=== PATIENT | male | born 1950 | race African-American/Black ===

== ENCOUNTER 2017-09-20 17:37 | Inpatient (IN) | payer MEDICAID, OTHER ==
[~2017-09-20] VITALS: Ht 188 cm; Wt 78.5 kg
[2017-09-20] MEDS ORDERED: SODIUM CHLORIDE 0.9% 1,000 ML IV ONE (19:30)
[2017-09-20 20:02] LABS: Basophils # (auto) 0 uL; Basophils % (auto) 0.4 % (0.0-2.0); Eosinophils # (auto) 0 uL; Eosinophils % (auto) 0.1 % (0.0-7.0); Hematocrit 43.7 % (41.0-53.0); Hemoglobin 14.5 g/dL (13.5-17.5); Lymphocytes # (auto) 1.1 uL; Lymphocytes % (auto) 14.4 % (10.0-50.0); Mean Corpuscular Hemoglobin 32.2 pg (28.0-32.0); Mean Corpuscular Hgb Conc. 33.2 g/dL (32.0-36.0); Mean Corpuscular Volume 96.9 fL (80.0-100.0); Monocytes # (auto) 0.7 uL; Monocytes % (auto) 9.9 % (0.0-12.0); Neutrophils # (auto) 5.6 uL; Neutrophils % (auto) 75.2 % (37.0-80.0); Nucleated Red Blood Cells % 0.1 %; Platelet Count (auto) 150 10^3/uL (140-450); Red Blood Cells 4.51 10^6/uL (4.5-5.90); Red Cell Distribution Width 14.2 % (11.8-14.3); White Blood Cell 7.4 10^3/uL (4.4-10.8)
[2017-09-20 20:15] LABS: Alanine Aminotransferase 33 U/L (16-61); Albumin 3.7 g/dL (3.4-5.0); Alkaline Phosphatase 107 U/L (45-117); Anion Gap 9 (5-15); Aspartate Aminotransferase 31 U/L (15-37); BUN/Creatinine Ratio 10.2; Bilirubin, Total 0.5 mg/dL (0.2-1.0); Blood Alcohol < 3.0 mg/dL (0-5); Blood Urea Nitrogen 15 mg/dL (7-18); Carbon Dioxide 28 mmol/L (21-32); Chloride 103 mmol/L (98-107); GFR African American 61 mL/min; GFR Non-African American 51 mL/min; Glucose 98 mg/dL (74-106); Magnesium 2.1 mg/dL (1.6-2.6); Potassium 3.9 mmol/L (3.5-5.1); Sodium 140 mmol/L (136-145); Total Protein 7.7 g/dL (6.4-8.2)
[2017-09-20] MEDS ORDERED: ONDANSETRON HCL 4 MG/2 ML VIAL IV ONE (21:00)
[2017-09-20] MEDS ORDERED: MORPHINE SULF INJ 2 MG/ML SYRINGE 1ML IV ONE (21:00)
[2017-09-20] MEDS ORDERED: IPRATROPIUM BROM 0.5 MG/2.5ML INH SOL HHN ONE (21:00)
[2017-09-20] MEDS ORDERED: ALBUTEROL SULF 2.5 MG/0.5ML(0.5%) NEB SOLN HHN ONE (21:00)
[2017-09-20 23:11] LABS: Amylase 62 U/L (25-115); Lipase 143 U/L (73-393)
[2017-09-21] MEDS ORDERED: MORPHINE SULF INJ 2 MG/ML SYRINGE 1ML IV PRN (04:45)
[2017-09-21] MEDS ORDERED: NITROGLYCERIN 0.4 MG SL TAB SL PRN (04:45)
[2017-09-21 05:54] LABS: Basophils # (auto) 0.1 uL; Eosinophils # (auto) 0 uL; Hematocrit 42.2 % (41.0-53.0); Hemoglobin 14.1 g/dL (13.5-17.5); Lymphocytes # (auto) 1.5 uL; Lymphocytes % (auto) 16.8 % (10.0-50.0); Mean Corpuscular Hgb Conc. 33.4 g/dL (32.0-36.0); Mean Corpuscular Volume 95.8 fL (80.0-100.0); Monocytes # (auto) 0.8 uL; Neutrophils # (auto) 6.8 uL; Neutrophils % (auto) 73.2 % (37.0-80.0); Platelet Count (auto) 146 10^3/uL (140-450); Red Blood Cells 4.41 10^6/uL (4.5-5.90); White Blood Cell 9.2 10^3/uL (4.4-10.8)
[2017-09-21] MEDS ORDERED: HYDROcodone-ACET 5/325MG TAB PO PRN (06:00)
[2017-09-21] MEDS ORDERED: ACETAMINOPHEN 500 MG TAB PO PRN (06:00)
[2017-09-21] MEDS ORDERED: ONDANSETRON HCL 4 MG/2 ML VIAL IV PRN (06:00)
[2017-09-21 06:15] LABS: BUN/Creatinine Ratio 9.9; Potassium 4.1 mmol/L (3.5-5.1)
[2017-09-21] MEDS ORDERED: ACETAMINOPHEN 500 MG TAB PO ONE (06:15)
[2017-09-21 06:27] LABS: Urine Bacteria None Seen /hpf (None Seen); Urine WBC None Seen /hpf (0 - 3)
[2017-09-21 06:49] LABS: Urine Blood Normal /uL (Negative)
[2017-09-21] MEDS: GABAPENTIN 300 MG CAP PO SCH (10:51)
[2017-09-21] MEDS ORDERED: LORazepam 2MG/ML-1ML VIAL IV ONE (15:30)
[2017-09-21] MEDS: SODIUM CHLORIDE 0.9% 1,000 ML IV SCH (15:49)
[2017-09-21 16:45] LABS: Lactic Acid w/Reflex 2.1 mmol/L (0.4-2.0)
[2017-09-21] MEDS ORDERED: GABA100C9 PO (18:10)
[2017-09-21 21:57] VITALS: BP 111/57
[2017-09-22 05:04] VITALS: BP 123/62
[2017-09-22] MEDS: MORPHINE SULFATE 4 MG/ML SYR/VIAL ONE ×2 (06:23→06:28)
[2017-09-22 06:30] LABS: Basophils # (auto) 0.1 uL; Eosinophils # (auto) 0 uL; Eosinophils % (auto) 0.7 % (0.0-7.0); Hematocrit 39.6 % (41.0-53.0); Hemoglobin 13.4 g/dL (13.5-17.5); Lymphocytes # (auto) 1.2 uL; Lymphocytes % (auto) 20.1 % (10.0-50.0); Mean Corpuscular Hemoglobin 32.5 pg (28.0-32.0); Mean Corpuscular Hgb Conc. 33.8 g/dL (32.0-36.0); Mean Corpuscular Volume 96.3 fL (80.0-100.0); Monocytes # (auto) 0.6 uL; Monocytes % (auto) 10.1 % (0.0-12.0); Neutrophils # (auto) 4.1 uL; Neutrophils % (auto) 68.1 % (37.0-80.0); Platelet Count (auto) 138 10^3/uL (140-450); Red Blood Cells 4.12 10^6/uL (4.5-5.90)
[2017-09-22] MEDS ORDERED: MORPHINE SULF INJ 2 MG/ML SYRINGE 1ML IV ONE (06:30)
[2017-09-22 06:49] LABS: BUN/Creatinine Ratio 11.5; Calcium 8.2 mg/dL (8.5-10.1); Potassium 4.2 mmol/L (3.5-5.1)
[2017-09-22 08:49] VITALS: BP 130/64
[2017-09-22] MEDS ORDERED: LEVOFLOXACIN 500MG 100 ML IV ONE (10:45)
[2017-09-22 11:11] VITALS: BP_SYST 105; BP_SYST 115; BP_SYST 121; BP_DIAS 50; BP_DIAS 55; BP_DIAS 56
[2017-09-22] MEDS: SODIUM CHLORIDE 0.9% 1,000 ML IV SCH (11:14)
[2017-09-22] MEDS: GABAPENTIN 300 MG CAP PO SCH (11:15)
[2017-09-22 13:00] VITALS: BP 121/56
[2017-09-22] MEDS: guaiFENesin-DM 100/10mg/5ml SYR PO PRN ×2 (14:00→20:44)
[2017-09-22] MEDS: MORPHINE SULFATE 10 MG/ML INJ 1ML SDV IV PRN (16:22)
[2017-09-22 17:00] VITALS: BP 131/74
[2017-09-22 22:00] VITALS: BP 113/77
[2017-09-23] MEDS: SODIUM CHLORIDE 0.9% 1,000 ML IV SCH ×2 (00:20→17:59)
[2017-09-23 05:36] VITALS: BP_SYST 105; BP_SYST 111; BP_SYST 122; BP_DIAS 64; BP_DIAS 74
[2017-09-23 08:00] VITALS: BP 116/51
[2017-09-23 09:00] VITALS: BP 116/51
[2017-09-23] MEDS ORDERED: LEVOFLOXACIN 500MG 100 ML IV SCH (10:00)
[2017-09-23] MEDS ORDERED: LEVOFLOXACIN 250MG 50 ML IV ONE (10:15)
[2017-09-23] MEDS: GABAPENTIN 300 MG CAP PO SCH (10:22)
[2017-09-23 13:00] VITALS: BP_SYST 118; BP_SYST 146; BP_DIAS 70; BP_DIAS 88
[2017-09-23] MEDS: MORPHINE SULFATE 10 MG/ML INJ 1ML SDV IV PRN (15:41)
[2017-09-23 17:00] VITALS: BP 125/68
[2017-09-23 22:00] VITALS: BP 117/70
[2017-09-24 05:00] VITALS: BP 117/61
[2017-09-24 09:00] VITALS: BP 94/50
[2017-09-24] MEDS: GABAPENTIN 300 MG CAP PO SCH (09:50)
[2017-09-24] MEDS ORDERED: LEVOFLOXACIN 750MG 150 ML IV SCH (10:00)
[2017-09-24] MEDS ORDERED: LEVO750T2 PO (10:11)
[2017-09-24] MEDS: SODIUM CHLORIDE 0.9% 1,000 ML IV SCH (10:25)
[2017-09-24 13:00] VITALS: BP 117/64
[2017-09-24 14:17] VITALS: BP 132/75
== END 2017-09-24 15:30 | disposition home or self-care (01) | DRG 871 ==
LOC: ER 17:40 → TELE 17:41 → TELE-WESTW 09-21 17:56
PROVIDERS: ADMIT Nurse Practitioner Family; ATTEND Internal Medicine
DX: A41.9 Sepsis, unspecified organism (principal); N17.0 Acute kidney failure with tubular necrosis; J18.9 Pneumonia, unspecified organism; R55 Syncope and collapse; G62.9 Polyneuropathy, unspecified; H40.9 Unspecified glaucoma; F17.200 Nicotine dependence, unspecified, uncomplicated; M16.0 Bilateral primary osteoarthritis of hip
CPT/HCPCS: 36415; 70450; 70551; 71045; 71046; 73502; 74176; 80048; 80053; 80061; 80320; 81001; 82150; 83605; 83690; 83735; 84484; 85025; 87040; 87400; 93005; 93306; 93886; 94640; 96361; 96374; 96375; J1956; J2405